=== PATIENT | female | born 1955 | race Caucasian/White ===

== ENCOUNTER → 2018-05-28 | Day surgery (SDC) | payer OTHER ==
[~2018-05-28] MED LIST: CALCIUM + VITA1 EACH; EVISTA60 MG PO; FENTANYL CITRATE/PF 100MCG/2 ML INJ ONE; FISH OIL 1,0001 EAC2; HYOSCYAMINE SULFATE 0.5 MG/ML INJ ONE; LIDOCAINE HCL 2% LOCAL INJ 5 ML SDV VIAL INJ ONE; MIDAZOLAM HCL 2 MG/2 ML VIAL ONE; MULTIVITAMIN; NEXIUM OTC PO; NEXIUM20 MG PO; PANTOPRAZOLE SO40 MG PO; PROPOFOL IV EMULSION 10 MG/ML 50 ML VIAL ONE; RESTASIS; RESTASIS1 EACH OP
--- OUTSIDE RECORDS SUMMARY | 2018-05-28 07:06 | XMS REPORT ---
[facility] Address Unknown Phone Unavailable Care Team Providers Care [employer] Executive Name Role Phone LUIS CARLOS TUCKER Unavailable Unavailable Problems This patient has no known problems. Allergies, Adverse Reactions, Alerts This patient has no known allergies or adverse reactions. Medications This patient has no known medications. Results Test Description Test Time Test Comments Text Results Atomic Results Result Comments US THYROID [place] [address] Patient Name: AN ORTIZ MR #: [id number] : 1955 Age/Sex: 61/F Req #: [id number] [facility] Physician: Ordered by: LUIS CARLOS TUCKER DO Report #: [id number] Location: US Room/Bed: Procedure: [id number] US/US THYROID Exam Date: 03/15/17 Exam Time: 0832 REPORT STATUS: Signed PROCEDURE: US THYROID COMPARISON: None. INDICATIONS: Thyroid Mass TECHNIQUE: Gauthier scale color Doppler ultrasound thyroid FINDINGS: Right lobe: 4.5 x 1.4 x 2.1 cm Left lobe: 4.6 x 1.4 x 1.8 cm Isthmus thickness 3 mm. Underlying thyroid parenchymal echogenicity and color Doppler flow are normal. Right lobe: * There are at least 3 sub-5 mm hypoechoic nodules within the right lobe. * 2 x 0.9 x 1.6 cm solid (2 points), hyperechoic (1 point), wider than tall, smooth margin without echogenic foci. Total 3 point (mildly suspicious). Left lobe: * 1.6 x 0.7 x 1.1 cm mixed cystic solid (1 point), hypoechoic (2 points), wider than tall, ill-defined margin with punctate echogenic foci (3 points). Total 6 points (moderately suspicious) * 0.8 x 0.4 x 0.6 cm solid (2), hypoechoic (2), wider than tall, smooth margin with microcalcification (1). Total 5 points (moderately suspicious) CONCLUSION: 1. 1.6 cm left thyroid nodule moderately suspicious. FNA recommended. 2. 2 cm right thyroid nodule mildly suspicious by ACR Ti-Rads criteria. Follow-up is recommended. 3. 0.8 cm left thyroid nodule moderately suspicious. Follow-up is recommended given the size. 4. Followup imaging is recommended at 1, 2, 3 and 5 years. ACR Ti-Rads guidelines 2017. Dictated by: Gladis Cabrera M.D. on 03/15/2017 at 9:44 Electronically approved by: Gladis Cabrera M.D. on 03/15/2017 at 9:44 Dictated By: GLADIS CABRERA MD 3 Transcribed By: NANCY on 03/15/17943 COPY TO: LUIS CARLOS TUCKER DO
[2018-05-28 10:40] VITALS: BP 129/86
--- NOTE | 2018-05-28 13:09 | Operative Report ---
DATE OF PROCEDURE: May 28, 2018 REFERRING PHYSICIAN: Dr. Reyna Cowan in [place], [place]. PROCEDURES PERFORMED 1. Esophagogastroduodenoscopy with biopsies. 2. Colonoscopy with polypectomy. INDICATIONS FOR EGD: Acid reflux. INDICATIONS FOR COLONOSCOPY: Surveillance colonoscopy, personal history of colon polyps, father with colon cancer. MEDICATION: Patient was done under MAC. Please see anesthesiologist's note. PROCEDURE: With the patient in the left lateral decubitus position, the flexible fiberoptic Olympus gastroscope was introduced into the esophagus under direct visualization without any difficulty. There was some patchy erythema noted in the distal esophagus. The scope was then advanced with ease into the stomach. Mucosa overlying the antrum and the body revealed some patchy erythema and low-grade to moderate edema, and biopsies were obtained and sent to stain for H. pylori. Several hyperplastic appearing polyps were noted in the body of the stomach and some were partially excised with the cold biopsy forceps. The pylorus was of normal contour and shape. It was intubated with ease. The scope was advanced all the way to the 2nd portion of the duodenum. The scope was then withdrawn slowly and there was a periampullary diverticulum noted. Biopsies were obtained from the proximal 2nd portion and the duodenal bulb to rule out sprue. The scope was then withdrawn back into the stomach and retroflexed. The mucosa overlying the fundus and the cardia appeared to be within normal limits. The scope was then straightened out. It was subsequently withdrawn. Patient tolerated the procedure well. IMPRESSION 1. Mild distal esophagitis. 2. Gastritis, biopsied. Biopsies sent to stain for Helicobacter pylori. 3. Gastric polyps, body, some partially excised with the cold biopsy forceps. 4. Periampullary diverticulum. PLAN: Follow up histology. Initiate Protonix 40 mg 1 p.o. q.a.m. a.c. Patient was then turned around. After adequate lubrication of the anal canal, a flexible fiberoptic Olympus colonoscope was inserted into the rectum with ease and advanced all the way to the cecum. It was then withdrawn slowly. Mucosa overlying the cecum appeared to be within normal limits. One polyp was hot biopsied from the ascending colon. There was a single diverticulum noted approximately in the hepatic flexure. The transverse, descending and sigmoid appeared to be within normal limits. One polyp was hot biopsied from the rectum. The scope was then retroflexed into the distal rectum. Small internal hemorrhoids were noted, none of which was actively bleeding. The scope was then straightened out. It was subsequently withdrawn. Patient tolerated the procedure well. IMPRESSION 1. Ascending colon polyp, hot biopsied. 2. Single diverticulum in the hepatic flexure. 3. Rectal polyp, hot biopsied. 4. Internal hemorrhoids, none actively bleeding. PLAN: Follow up histology. Initiate high-fiber and low-fat diet. Initiate high-fiber supplement. Patient might benefit from a followup colonoscopy in 3-5 years. Job#: [id number] RI cc: REYNA COWAN MD IN [place], [place]
== END | disposition home or self-care (01) ==
LOC: ENDO 07:04
PROVIDERS: ATTEND Internal Medicine Gastroenterology
DX: K21.9 Gastro-esophageal reflux disease without esophagitis (principal); D12.2 Benign neoplasm of ascending colon; K62.1 Rectal polyp; K31.7 Polyp of stomach and duodenum; K29.70 Gastritis, unspecified, without bleeding; K20.9 Esophagitis, unspecified; K57.10 Diverticulosis of small intestine without perforation or abscess without bleeding; K57.30 Diverticulosis of large intestine without perforation or abscess without bleeding; K64.8 Other hemorrhoids; Z80.0 Family history of malignant neoplasm of digestive organs
CPT/HCPCS: 43239; 45384; 93005; J1980; J2001; J2250; 45378

== ENCOUNTER → 2021-07-13 | Day surgery (SDC) | payer MEDICARE ==
[~2021-07-13] MED LIST changes: +CALCIUM PO; +MULTI-VITAMIN1 EACH PO; +PROPOFOL IV EMULSION 10 MG/ML 20 ML VIAL ONE; -PROPOFOL IV EMULSION 10 MG/ML 50 ML VIAL ONE
[2021-07-13 07:29] LABS: BASOPHILS # (AUTO) 0.1 (0.0-0.1); BASOPHILS % 0.7 % (0.0-1.0); EOSINOPHILS # (AUTO) 0.1 (0.0-0.4); EOSINOPHILS % 0.8 % (0.0-6.0); HEMATOCRIT 47.4 % (34.2-44.1); HEMOGLOBIN 15.2 g/dL (12.0-16.0); LYMPHOCYTES % 28.2 % (18.0-39.1); MEAN CORPUSCULAR HEMOGLOBIN 30.4 pg (28-32); MEAN CORPUSCULAR HGB CONC 32.1 g/dL (31-35); MEAN CORPUSCULAR VOLUME 94.8 fL (81-99); MONOCYTES # (AUTO) 0.7 (0.2-0.8); MONOCYTES % 9.9 % (4.4-11.3); NEUTROPHILS # (AUTO) 4.3 (2.1-6.9); NEUTROPHILS % 60.3 % (38.7-80.0); PLATELET COUNT 285 x10e3/uL (140-360); RED CELL DISTRIBUTION WIDTH 13.6 % (11.7-14.4)
[2021-07-13 10:22] VITALS: BP 101/65
== END | disposition home or self-care (01) ==
LOC: OR 06:50
PROVIDERS: ATTEND Internal Medicine Gastroenterology
DX: Z12.11 Encounter for screening for malignant neoplasm of colon (principal); Z86.010 Personal history of colon polyps; K57.30 Diverticulosis of large intestine without perforation or abscess without bleeding; K64.8 Other hemorrhoids; K21.9 Gastro-esophageal reflux disease without esophagitis; Z71.3 Dietary counseling and surveillance; I83.90 Asymptomatic varicose veins of unspecified lower extremity; N39.0 Urinary tract infection, site not specified; E04.1 Nontoxic single thyroid nodule; Z20.822 Contact with and (suspected) exposure to COVID-19; Z86.16 Personal history of COVID-19; M19.042 Primary osteoarthritis, left hand; M19.041 Primary osteoarthritis, right hand; Z87.01 Personal history of pneumonia (recurrent); Z86.19 Personal history of other infectious and parasitic diseases; Z95.820 Peripheral vascular angioplasty status with implants and grafts; Z80.0 Family history of malignant neoplasm of digestive organs
CPT/HCPCS: 36415; 85025; 93005; G0105; J1980; J2001; J2250; J2704; J3010; U0002; 45378

== ENCOUNTER → 2024-08-13 | Day surgery (SDC) | payer MEDICARE ==
[2024-08-06 10:54] LABS: BASOPHILS # (AUTO) 0.1 (0.0-0.1); BASOPHILS % 0.8 % (0.0-1.0); EOSINOPHILS # (AUTO) 0.1 (0.0-0.4); EOSINOPHILS % 1.7 % (0.0-6.0); HEMATOCRIT 42.8 % (34.2-44.1); HEMOGLOBIN 14.2 g/dL (12.0-16.0); LYMPHOCYTES % 33.2 % (18.0-39.1); MEAN CORPUSCULAR HEMOGLOBIN 30.6 pg (28-32); MEAN CORPUSCULAR HGB CONC 33.2 g/dL (31-35); MEAN CORPUSCULAR VOLUME 92.2 fL (81-99); MONOCYTES # (AUTO) 0.6 (0.2-0.8); MONOCYTES % 9.8 % (4.4-11.3); NEUTROPHILS # (AUTO) 3.3 (2.1-6.9); NEUTROPHILS % 54.3 % (38.7-80.0); PLATELET COUNT 265 x10e3/uL (140-360); RED BLOOD COUNT 4.64 x10e6/uL (3.6-5.1); RED CELL DISTRIBUTION WIDTH 13.4 % (11.7-14.4); WHITE BLOOD COUNT 5.99 x10e3/uL (4.8-10.8)
[~2024-08-13] MED LIST changes: +DEXMEDETOMIDINE HCL 200 MCG/2 ML VIAL ONE; +DOXYCYCLINE HY100 MG PO; +GLUCAGON FOR INJ 1 MG VIAL ONE; +METOCLOPRAMIDE HCL 10 MG/2ML VIAL ONE; -MIDAZOLAM HCL 2 MG/2 ML VIAL ONE; -PROPOFOL IV EMULSION 10 MG/ML 20 ML VIAL ONE; +PROPOFOL IV EMULSION 50 ML IV ONE; +XIIDRA1 EACH OU
[2024-08-13 13:25] VITALS: BP 103/79; PULSE 82; RESP 15; TEMP 97.8; O2SAT 97
== END | disposition home or self-care (01) ==
LOC: OR 09:36
PROVIDERS: ATTEND Internal Medicine Gastroenterology
DX: K21.9 Gastro-esophageal reflux disease without esophagitis (principal); Z86.0100 Personal history of colon polyps, unspecified; K31.7 Polyp of stomach and duodenum; K29.70 Gastritis, unspecified, without bleeding; K20.90 Esophagitis, unspecified without bleeding; K57.30 Diverticulosis of large intestine without perforation or abscess without bleeding; K64.8 Other hemorrhoids; K76.89 Other specified diseases of liver; Z71.3 Dietary counseling and surveillance; Z71.89 Other specified counseling; Z01.810 Encounter for preprocedural cardiovascular examination; Z01.812 Encounter for preprocedural laboratory examination; Z85.828 Personal history of other malignant neoplasm of skin; Z86.16 Personal history of COVID-19; Z80.0 Family history of malignant neoplasm of digestive organs
CPT/HCPCS: 36415; 43239; 45378; 85025; 93005; J1610; J1980; J2003; J2470; J2704; J2765; J3010